=== PATIENT | male | born 1970 | race Caucasian/White ===

== ENCOUNTER 2025-11-01 08:48 | Outpatient (CLI) | payer BC, SELFPAY | END 2025-11-01 08:49 | disposition home or self-care (01) | LOC: RAD 08:49 → INJ CL 09:23 | PROVIDERS: Visit Provider Nurse Anesthetist, Certified Registered | DX: M17.12 Unilateral primary osteoarthritis, left knee (principal); M25.562 Pain in left knee | CPT/HCPCS: 64454 ==